=== PATIENT | female | born 1950 | race Caucasian/White ===

== ENCOUNTER → 2016-02-24 | Outpatient (CLI) | payer BC ==
[~2016-02-24] MED LIST: ASPCH81 PO; BIOT10TA2; BUPR-79 PO; CHOL20005 PO; CLON0.5T3 PO; CLTP PO; CYCL10TA6 PO; DICY20TA10; DNSIS60 INJ; FLNIN NAE; FLUT110A INH; LETR2TAB PO; MULT-506 PO; NAPR-1169 PO; PANT1TAB3 PO; SERT-234 PO; SIMV10TA2 PO; TRAZ-119 PO; VITA400C3 PO; ZINC1TAB PO; [UNRECOGNIZED DRUG - CODE]
[2016-02-24 15:39] LABS: LYME DISEASE AB IGG NEG (NEG); LYME DISEASE AB IGM NEG (NEG)
--- NOTE | 2016-03-02 07:00 | CODING QUERY MEDICAL NECESSITY ---
SUPPORTING DIAGNOSIS NEEDED A supporting diagnosis is required for the test/procedure performed on this patient in order for us to be reimbursed by the patient's insurance. Please provide a supporting diagnosis for the following test/procedure listed below next to the test name along with your signature. *If there is no additional diagnosis for this patient that would support the following test/procedure please document that below next to the test/procedure. Test(s)/Procedure(s) that require a supporting diagnosis: DOS 02/23 * Vitamin B12 DIAGNOSIS: Provider Signature: Date: Thank you Shahida Saldana Health Information Management Once completed, please kindly fax back to [phone] For questions please call [phone]
== END | disposition home or self-care (01) ==
LOC: C.LABBC 11:55
PROVIDERS: ATTEND Psychiatry & Neurology Neurology
DX: G25.0 Essential tremor (principal); R41.89 Other symptoms and signs involving cognitive functions and awareness; C50.919 Malignant neoplasm of unspecified site of unspecified female breast; G43.009 Migraine without aura, not intractable, without status migrainosus; H81.312 Aural vertigo, left ear

== ENCOUNTER → 2016-08-18 | Outpatient (CLI) | payer BC ==
[~2016-08-18] MED LIST changes: -PANT1TAB3 PO; +PANT1TAB48 PO; -TRAZ-119 PO; +TRAZ1TAB16 PO
--- NOTE | 2016-08-19 12:31 | MAMMOGRAPHY REPORT ---
BILATERAL DIGITAL SCREENING MAMMOGRAM TOMOSYNTHESIS WITH CAD: 08/18/2016 CLINICAL HISTORY: Routine screening. Patient has no complaints. TECHNIQUE: Breast tomosynthesis in addition to standard 2D mammography was performed. Current study was also evaluated with a Computer Aided Detection (CAD) system. COMPARISON: Comparison is made to exams dated: 02/16/2016 mammogram, 08/11/2015 mammogram, 08/04/2014 mammogram, 01/08/2014 mammogram, 07/01/2013 mammogram, and 12/14/2012 mammogram - [facility]. BREAST COMPOSITION: There are scattered areas of fibroglandular density in both breasts. FINDINGS: No suspicious masses, calcifications, or areas of architectural distortion are noted in ei ther breast. There has been no significant interval change compared to prior exams. There are stable post surgical changes in the left upper outer quadrant from prior lumpectomy, including stable densi ty, architectural distortion, and surgical clips at the lumpectomy bed. Coarse benign dystrophic buddy cifications are again noted at the lumpectomy bed. IMPRESSION: ACR BI-RADS CATEGORY 2: BENIGN There is no mammographic evidence of malignancy. A 1 year screening mammogram is recommended. The pa tient will receive written notification of the results. Approximately 10% of breast cancers are not detected with mammography. A negative mammographic report should not delay biopsy if a clinically suggestive mass is present. Jojo Helton M.D. /:08/18/2016 15:24:52 Tin Tie Machine Operator Automatic: Lisa ACOSTA(Fang)(Stephen)(FRANCISCA), [facility] letter sent: Normal 1/2 BI-RADS Code: ACR BI-RADS Category 2: Benign
== END | disposition home or self-care (01) ==
LOC: C.MAMM 13:31
PROVIDERS: ATTEND Physician Assistant Medical
DX: Z12.31 Encounter for screening mammogram for malignant neoplasm of breast (principal); Z08 Encounter for follow-up examination after completed treatment for malignant neoplasm; Z85.3 Personal history of malignant neoplasm of breast

== ENCOUNTER → 2016-10-04 | Outpatient (CLI) | payer BC ==
[2016-10-04 13:48] VITALS: BP 134/72; PULSE 65; TEMP 36.7; O2SAT 98
--- NOTE | 2016-10-04 18:29 | Radiation Oncology Follow-Up ---
Radiation Oncology Follow-Up Date of Visit Oct 04, 2016. 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 She denies any changes to her breast. She is noted no masses or tenderness and no change in the axilla. She's had no swelling of her arm. She is up-to-date on mammography. She continues on Femara and denies side effects. She stated she was not sure as to when she should have her next Prolia injection. Her last mammogram was 2016. There is no mammographic evidence of malignancy. BI-RADS Category 2. Allergies Coded Allergies: Sulfa Antibiotics (Verified Allergy, Severe, HIVES, 08/01/14) Home Medications Scheduled Aspirin (Aspirin Tab-Chewable *), 1 TAB PO HS Biotin (Biotin), DAILY Bupropion (Wellbutrin Sr), 150 MG PO BID Calcium/Vitamin D (Caltrate 600 Plus *), 1 TAB PO BID Cholecalciferol (Vitamin D3), 2,000 UNIT(INT) PO DAILY Cyclobenzaprine Hcl (Flexeril), 10 MG PO TIDPRN Denosumab (Prolia), 1 APPLN INJ [id number] Dicyclomine Hcl (Dicyclomine Hcl), PRN Fluticasone Propionate (Flonase Nasal [employer]), 1 SPRAY YUVAL PRN Fluticasone Propionate Hfa (Flovent Hfa 110MCG Inhaler), 4 PUFF INH BID Letrozole (Femara), 2.5 MG PO DAILY Multivitamin (Multivitamin), 1 TAB PO DAILY Pantoprazole (Protonix), 40 MG PO DAILY Sertraline (Zoloft), 1 TAB PO DAILY Simvastatin (Zocor), 10 MG PO QPM Vitamin E (Vitamin E 400 Iu), 400 INTER.UNIT PO DAILY Scheduled PRN Clonazepam (Klonopin), 0.5 MG PO DAILY PRN for Anxiety Naproxen (Naprosyn), 500 MG PO DAILY PRN Trazodone Hcl (Desyrel), 50 MG PO HS PRN Review of Systems Gastrointestinal: Symptoms: WNL Oral: Symptoms: No Problems Respiratory: Symptoms: WNL Urinary: Symptoms: WNL Skin: Symptoms: No Problems Breast: Right Upper Arm Measurement: 23.5 Right Mid Arm Measurement: 20.5 Right Wrist Measurement: 14.3 Left Upper Arm Measurement: 23.0 Left Mid Arm Measurement: 19.0 Left Wrist Measurement: 14.3 Arm Dominence: Right Patient Cosmetic Evaluation: Excellent Staff Cosmetic Evalaluation: Excellent Physical Exam Vital Signs Date Time Temp Pulse Resp B/P (MAP) Pulse Ox O2 Delivery O2 Flow Rate FiO2 10/04/16 13:48 36.7 65 16 134/72 98 Pain: Side: Bilateral Patient Pain Scale: 0 - 10 Initial Pain Intensity: 0.0 Fatigue: None General Appearance: no apparent distress Eyes: normal inspection, EOMI ENT: normal ENT inspection, hearing grossly normal Neck: no adenopathy, thyroid normal Respiratory/Chest: lungs clear, no respiratory distress, no accessory muscle use Breast: Breast examination reveals well-healed incisions of the left breast. There are no masses or tenderness and no axillary adenopathy. There is no skin retractions. There are mild fibrous changes in the upper outer quadrant. There are no nipple changes. Using the [place] score cosmesis she has a good outcome. The right breast showed no masses or tenderness and no axillary adenopathy. Cardiovascular: regular rate, rhythm, no gallop, no murmur Extremities: no pedal edema Neurologic/Psychiatric: no motor/sensory deficits, alert, normal mood/affect Skin: warm/dry Additional Studies Patient: ELODIA BENJAMIN [facility] Rec: [id number] Address1: [address] [place] [address] Address2: [facility] ID: [id number] Date: 1950 Sex: F Ref Phy: Joo Roland D.O. Att Phy: Carole Durham PA-C Ericka Phy: Kwesi Jane M.D. Inter Phy: Jojo Helton MD [facility] Zip: [place] [address] SC: [email or web address] Report #: [id number] Special Education Coordinator: DEANGELO Diagnosis: ASYMPTOMATIC, HX BREAST CA Service Date: 08/18/16 MNE: [id number] Ordering Dr: Carole Durham PA-C CC: Carole Durham PA-C CONF: DICTATED BY: Jojo Helton MD MAMMOGRAPHY REPORT BILATERAL DIGITAL SCREENING MAMMOGRAM TOMOSYNTHESIS WITH CAD: 08/18/2016 CLINICAL HISTORY: Routine screening. Patient has no complaints. TECHNIQUE: Breast tomosynthesis in addition to standard 2D mammography was performed. Current study was also evaluated with a Computer Aided Detection (CAD ) system. COMPARISON: Comparison is made to exams dated: 02/16/2016 mammogram, 08/11/2015 mammogram, 08/04/2014 mammogram, 01/08/2014 mammogram, 07/01/2013 mammogram, and 12/14/2012 mammogram - [facility]. BREAST COMPOSITION: There are scattered areas of fibroglandular density in both breasts. FINDINGS: No suspicious masses, calcifications, or areas of architectural distortion are noted in either breast. There has been no significant interval change compared to prior exams. There are stable post surgical changes in the left upper outer quadrant from prior lumpectomy, including stable density, architectural distortion, and surgical clips at the lumpectomy bed. Coarse benign dystrophic calcifications are again noted at the lumpectomy bed. IMPRESSION: ACR BI-RADS CATEGORY 2: BENIGN There is no mammographic evidence of malignancy. A 1 year screening mammogram is recommended. The patient will receive written notification of the results. Approximately 10% of breast cancers are not detected with mammography. A negative mammographic report should not delay biopsy if a clinically suggestive mass is present. Jojo Helton M.D. /:08/18/2016 15:24:52 Architectural Administrative Assistant: Lisa ACOSTA(Fang)(Stephen)(FRANCISCA), [facility] letter sent: Normal 1/2 BI-RADS Code: ACR BI-RADS Category 2: Benign Dictated by: Jojo Helton MD Signed by: Jojo Helton MD Assessment & Plan Plan: Continue regular follow-up with medical oncology and her primary care physician. We asked her to return to our office in 1 year. I've asked our company secretary to call medical oncology and have them review when her next injection should be given for Prolia. She continues on Femara. Continue with annual mammography. She may call our office if she has any questions or concerns. Total Time In Follow-Up I spent 20 minutes speaking to the patient performing examination. I spent 15 minutes reviewing information and completeness note Copy To Joo Roland D.O.; Kwesi Jane M.D. Problem Qualifiers (1) Breast cancer: Estrogen receptor status: positive Patient sex: female Laterality: left
== END | disposition home or self-care (01) ==
LOC: C.ONC 13:41
PROVIDERS: ATTEND Physician Assistant Medical
DX: Z08 Encounter for follow-up examination after completed treatment for malignant neoplasm (principal); Z92.3 Personal history of irradiation; Z85.3 Personal history of malignant neoplasm of breast

== ENCOUNTER → 2017-04-13 | Outpatient (CLI) | payer BC ==
[~2017-04-13] MED LIST changes: +PANT1TAB3 PO; -PANT1TAB48 PO; +TRAZ-119 PO; -TRAZ1TAB16 PO; -ZINC1TAB PO; -[UNRECOGNIZED DRUG - CODE]
== END | disposition home or self-care (01) ==
LOC: C.MAMM 09:26
PROVIDERS: ATTEND Internal Medicine Hematology & Oncology
DX: Z85.3 Personal history of malignant neoplasm of breast (principal); Z13.820 Encounter for screening for osteoporosis; M85.89 Other specified disorders of bone density and structure, multiple sites

== ENCOUNTER → 2017-10-05 | Outpatient (CLI) | payer BC ==
[~2017-10-05] MED LIST changes: -CLON0.5T3 PO; +KLN/5 PO; -NAPR-1169 PO; +NAPR-22 PO; -TRAZ-119 PO; +TRAZ1TAB96 PO
[2017-10-05 13:09] VITALS: PULSE 62; TEMP 36.7; O2SAT 100
--- NOTE | 2017-10-05 16:36 | Radiation Oncology Follow-Up ---
Radiation Oncology Follow-Up Date of Visit Oct 05, 2017. 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 She denies any changes to her breast. She is noted no masses or tenderness and no change of the axilla. She has had no swelling of her arm. She is up-to-date on mammography. She has completed 5 years of Femara. There has been discussion of continuation of the medication. She feels comfortable to complete the antiestrogen therapy at 5 years. Allergies Coded Allergies: Sulfa Antibiotics (Verified Allergy, Severe, HIVES, 08/01/14) Tizanidine (Verified Adverse Reaction, Severe, visual changes unable to read , 10/05/17) Fluoxetine (Verified Adverse Reaction, Intermediate, tremors, 10/05/17) Home Medications Scheduled Aspirin (Aspirin Tab-Chewable *), 1 TAB PO HS Biotin (Biotin), DAILY Bupropion (Wellbutrin Sr), 150 MG PO BID Calcium/Vitamin D (Caltrate 600 Plus *), 1 TAB PO BID Cholecalciferol (Vitamin D3), 2,000 UNIT(INT) PO DAILY Denosumab (Prolia), 1 APPLN INJ [id number] Dicyclomine Hcl (Dicyclomine Hcl), PRN Fluticasone Propionate (Flonase Nasal [place]), 1 SPRAY YUVAL PRN Fluticasone Propionate Hfa (Flovent Hfa 110MCG Inhaler), 4 PUFF INH BID Multivitamin (Multivitamin), 1 TAB PO DAILY Pantoprazole (Protonix), 40 MG PO DAILY Sertraline (Zoloft), 1 TAB PO DAILY Simvastatin (Zocor), 10 MG PO QPM Vitamin E (Vitamin E 400 Iu), 400 INTER.UNIT PO DAILY Scheduled PRN Clonazepam (Klonopin), 0.5 MG PO DAILY PRN for Anxiety Naproxen (Naprosyn), 500 MG PO DAILY PRN Trazodone Hcl (Desyrel), 50 MG PO HS PRN Review of Systems Gastrointestinal: Symptoms: WNL Oral: Other Oral Symptoms: occ dysphagia Respiratory: Symptoms: Dry Cough Urinary: Symptoms: WNL Skin: Symptoms: No Problems Breast: Right Upper Arm Measurement: 23.5 Right Mid Arm Measurement: 21.0 Right Wrist Measurement: 13.9 Left Upper Arm Measurement: 23.0 Left Mid Arm Measurement: 20.0 Left Wrist Measurement: 14.0 Arm Dominence: Right Patient Cosmetic Evaluation: Excellent Staff Cosmetic Evalaluation: Excellent Physical Exam Vital Signs Date Time Temp Pulse Resp B/P (MAP) Pulse Ox O2 Delivery O2 Flow Rate FiO2 10/05/17 13:09 36.7 62 16 100 General Appearance: no apparent distress Eyes: normal inspection, EOMI ENT: normal ENT inspection, hearing grossly normal Neck: no adenopathy, thyroid normal Respiratory/Chest: lungs clear, no respiratory distress, no accessory muscle use Breast: Breast examination reveals well-healed incisions of the left breast. There are no masses or tenderness and no axillary adenopathy. There is very minimal fibrous changes. She has no skin retractions or nipple changes. Using the [place] score cosmesis she has an excellent outcome. The right breast showed no masses or tenderness and no axillary adenopathy. Cardiovascular: regular rate, rhythm, no gallop, no murmur Extremities: no pedal edema Neurologic/Psychiatric: no motor/sensory deficits, alert, normal mood/affect Skin: warm/dry Pain Management Patient Reports Pain: No Initial Pain Intensity: 0.0 Pain Management Plan She denies pain therefore requires no pain management. Laboratory Laboratory Results: not applicable Pathology Pathology Results: not applicable Imaging Imaging Studies: were reviewed, and pertinent findings noted below Imaging Comments Patient: ELODIA BENJAMIN [facility] Rec: [id number] Address1: [address] [place] [address] [id number] Date: 1950 Sex: F Ref Phy: Joo Roland D.O. Att Phy: Carole Durham PA-C Pri Phy: Kwesi Jane M.D. Inter Phy: Jojo Helton MD [facility] Zip: [place] [address] SC: SantiagoMAMM Report #: [id number] Cook Mayonnaise: DEANGELO Diagnosis: ASYMPTOMATIC, HX BREAST CA Service Date: 08/18/16 MNE: [id number] Ordering Dr: Carole Durham PA-C CC: Carole Durham PA-C CONF: DICTATED BY: Jojo Helton MD MAMMOGRAPHY REPORT BILATERAL DIGITAL SCREENING MAMMOGRAM TOMOSYNTHESIS WITH CAD: 08/18/2016 CLINICAL HISTORY: Routine screening. Patient has no complaints. TECHNIQUE: Breast tomosynthesis in addition to standard 2D mammography was performed. Current study was also evaluated with a Computer Aided Detection (CAD ) system. COMPARISON: Comparison is made to exams dated: 02/16/2016 mammogram, 08/11/2015 mammogram, 08/04/2014 mammogram, 01/08/2014 mammogram, 07/01/2013 mammogram, and 12/14/2012 mammogram - [facility]. BREAST COMPOSITION: There are scattered areas of fibroglandular density in both breasts. FINDINGS: No suspicious masses, calcifications, or areas of architectural distortion are noted in either breast. There has been no significant interval change compared to prior exams. There are stable post surgical changes in the left upper outer quadrant from prior lumpectomy, including stable density, architectural distortion, and surgical clips at the lumpectomy bed. Coarse benign dystrophic calcifications are again noted at the lumpectomy bed. IMPRESSION: ACR BI-RADS CATEGORY 2: BENIGN There is no mammographic evidence of malignancy. A 1 year screening mammogram is recommended. The patient will receive written notification of the results. Approximately 10% of breast cancers are not detected with mammography. A negative mammographic report should not delay biopsy if a clinically suggestive mass is present. Jojo Helton M.D. /:08/18/2016 15:24:52 [place] Laborer: Lisa ACOSTA(Fang)(Stephen)(BD), [facility] letter sent: Normal 1/2 BI-RADS Code: ACR BI-RADS Category 2: Benign Dictated by: Jojo Helton MD Assessment & Plan Plan: She will be having a mammogram next month. She is behind on scheduling in regards the mammogram. She has a follow-up appointment with medical oncology on October 17, 2017. A follow-up appointment with our office was not given. She may now follow with medical oncology and her primary care physician. She may call our office if she has any questions or concerns we be happy to see her. Total Time In Follow-Up I spent 20 minutes speaking to the patient in performing examination. I spent 15 minutes reviewing information and completing this note. Copy To Joo Roland D.O.; Kwesi Jane M.D.
== END | disposition home or self-care (01) ==
LOC: C.ONC 12:59
PROVIDERS: ATTEND Physician Assistant Medical
DX: Z08 Encounter for follow-up examination after completed treatment for malignant neoplasm (principal); Z92.3 Personal history of irradiation; Z85.3 Personal history of malignant neoplasm of breast